=== PATIENT | male | born 1980 | race African-American/Black ===

== ENCOUNTER 2016-12-21 15:18 | Emergency (ER) | payer SELFPAY ==
[~2016-12-21] VITALS: Ht 188 cm; Wt 140.6 kg
[2016-12-21 15:33] VITALS: BP 150/100
[2016-12-21] MEDS ORDERED: CORTISPORIN EAR10 ML RIGHT EAR (16:02)
--- NOTE | 2016-12-21 16:03 | Emergency Room Report ---
History of Present Illness General Chief Complaint: Earache Source: Patient Present Illness HPI 36 y/o male c/o pain in right ear x 4 days. States 4 days ago he was taking shower and feels he got water in his ear. Patient tried to remove water with q- tip w/o improvement of sxs. States he has drainage from right ear and feels itchy and painful. No other modifying factors. Denies any current n/v/f/c/d, abd pain, back pain, neck pain, photophobia, phonophobia, CP, SOB or headache. Allergies: Coded Allergies: CEPHALEXIN (Verified Allergy, Unknown, 12/21/16) Patient History Past Medical History: see triage record Past Surgical History: none Pertinent Family History: none Reviewed Nursing Documentation: PMH: Agreed, PSxH: Agreed Nursing Documentation-PMH Past Medical History: No Stated History Review of Systems All Other Systems: negative except mentioned in HPI Physical Exam Vital Signs Date Time Temp Pulse Resp B/P Pulse Ox O2 Delivery O2 Flow Rate FiO2 12/21/16 15:22 97.3 72 16 150/100 97 Room Air Sp02 EP Interpretation: reviewed, normal General Appearance: no apparent distress, alert, GCS 15, non-toxic Head: normocephalic, atraumatic Eyes: bilateral eye PERRL, bilateral eye normal inspection ENT: hearing grossly normal, normal pharynx, no angioedema, normal voice, other - Right EAC swollen and mascerated with tender tragus Neck: full range of motion, supple/symm/no masses Respiratory: chest non-tender, lungs clear, normal breath sounds, speaking full sentences Cardiovascular #1: regular rate, rhythm, no edema Neurologic: alert, oriented x3, responsive, motor strength/tone normal, sensory intact, speech normal Psychiatric: judgement/insight normal, memory normal, mood/affect normal, no suicidal/homicidal ideation Skin: normal color, no rash, warm/dry, well hydrated Medical Decision Making PA Attestation Dr. Cassidy is my supervising physician with whom patient management has been discussed with. Diagnostic Impression: Primary Impression: Otitis externa of right ear Qualified Codes: H60.331 - Swimmer's ear, right ear ER Course Pt. presents to the ED c/o ear pain Ddx considered but are not limited to AOM, AOE, Doyle esquivel, Sinusitis, Eustachian tube dysfunction, TM Perf, Mastoiditis Vital signs: are WNL, pt. is afebrile H&PE are most consistent with AOE ORDERS: none required at this time, the diagnosis is clinical ED INTERVENTIONS: none required at this time. DISCHARGE: At this time pt. is stable for d/c to home. Will provide printed patient care instructions, and any necessary prescriptions. Care plan and follow up instructions have been discussed with the patient prior to discharge. Chest X-Ray Diagnostic Results Chest X-Ray Ordered: No Last Vital Signs Date Time Temp Pulse Resp B/P Pulse Ox O2 Delivery O2 Flow Rate FiO2 12/21/16 15:33 97.3 72 16 150/100 97 Room Air Status: unchanged Disposition: HOME, SELF-CARE Condition: Stable Scripts Neomycin/Polymyxin B Sulf/Hc* (CORTISPORIN EAR SOLUTION*) 10 Ml Solution 4 DROP RIGHT EAR QID for 7 Days, #10 ML 0 Refills Prov: MARELY ROSARIO 12/21/16 Patient Instructions: Otitis Externa, [id number] Additional Instructions: Take medication as directed. Stop medication if any rash develops and return to clinic immediately. Go to the ER if any SOB or adverse reactions occur from medication. Use ibuprofen or Tylenol if any fever or pain develop. Return sooner if no improvement within 3-5 days. MARELY ROSARIO Dec 21, 2016 16:03
[2016-12-21 16:20] VITALS: BP 150/100
== END 2016-12-21 16:25 | disposition home or self-care (01) ==
LOC: EMR 15:51
DX: H60.331 Swimmer's ear, right ear (principal); Z88.8 Allergy status to other drugs, medicaments and biological substances
CPT/HCPCS: 99283

== ENCOUNTER 2019-05-31 09:55 | Emergency (ER) | payer MEDICAID ==
[~2019-05-31] VITALS: Ht 188 cm; Wt 140.6 kg
[~2019-05-31 09:55] MED LIST: CORTISPORIN EAR10 ML RIGHT EAR
[2019-05-31 10:14] VITALS: BP 141/107
[2019-05-31] MEDS ORDERED: Ketorolac 60mg Inj IM ONE (10:45)
--- NOTE | 2019-05-31 12:06 | Diagnostic Imaging Report ---
Indication: Back pain Technique: 3 views of the lumbar spine Comparison: None Findings: Bony alignment is normal. Vertebral body heights are preserved. The disc spaces are preserved. The pedicles are intact. Sacral arches are preserved. Sacroiliac joint spaces are preserved Impression: Negative
[2019-05-31] MEDS ORDERED: IBUPROFEN600 MG ORAL (12:44)
[2019-05-31 12:55] VITALS: BP 138/92
--- NOTE | 2019-05-31 13:39 | Emergency Room Report ---
History of Present Illness General Chief Complaint: Lower Back Pain or Injury Source: Patient Present Illness HPI 38-year-old male presents with lower back pain after lifting at the gym, yesterday, patient reported doing lifts when he noticed pain in his lower back. Patient's pain is mostly on his right side in his lumbar region. Patient reports pain travels down the leg and when he moves. Patient denies any numbness, tingling, bowel changes, incontinence, urinary changes. Patient did not try any medications for pain. Allergies: Coded Allergies: CEPHALEXIN (Verified Allergy, Unknown, 12/21/16) Nursing Documentation-[facility] Past Medical History: No Stated History Review of Systems Constitutional: Denies: chills, fever Respiratory: Denies: cough, shortness of breath Cardiovascular: Denies: chest pain, palpitations Gastrointestinal: Denies: abdominal pain Musculoskeletal: Reports: back pain; Denies: joint pain Skin: Denies: rash, change in color Neurological: Denies: headache, seizure Physical Exam Vital Signs Date Time Temp Pulse Resp B/P (MAP) Pulse Ox O2 Delivery O2 Flow Rate FiO2 05/31/19 10:14 98.2 77 18 141/107 (118) 98 Room Air Sp02 EP Interpretation: reviewed, normal General Appearance: no apparent distress, alert, GCS 15, non-toxic Head: normocephalic, atraumatic Neck: full range of motion, supple/symm/no masses Respiratory: chest non-tender, lungs clear, normal breath sounds, speaking full sentences Cardiovascular #1: regular rate, rhythm, no edema Cardiovascular #2: 2+ radial (R), 2+ radial (L) Gastrointestinal: normal bowel sounds, non tender, soft, non-distended, no guarding, no rebound Musculoskeletal: gait/station normal, normal range of motion, calf tenderness, tender - Tenderness over right paraspinal to right lumbosacral joint and over buttocks Neurologic: alert, oriented x3, responsive, motor strength/tone normal, sensory intact, speech normal Skin: no rash, normal color Medical Decision Making Diagnostic Impression: Primary Impression: Back pain ER Course 38-year-old male with lumbar back pain after lifting at the gym. No signs of incontinence, bowel changes, numbness or tingling distally. Differential includes musculoskeletal pain, spinal stenosis, cauda equina syndrome, epidural abscess Less likely cauda equina or epidural abscess given the fact that he has no incontinence, midline tenderness, or lower extremity weakness Patient given anti-inflammatories and perform x-ray. Patient symptoms improved with medication X-ray within normal limits. Patient recommended to follow-up outpatient with physical therapist and primary care doctor for further evaluation. Other X-Ray Diagnostic Results Other X-Ray Diagnostic Results : X-Ray ordered: Lumbar spine Indication: Pain EP Interpretation: Yes Interpretation: no soft tissue swelling, no fractures Impression: No acute disease Last Vital Signs Date Time Temp Pulse Resp B/P (MAP) Pulse Ox O2 Delivery O2 Flow Rate FiO2 05/31/19 12:55 97.9 85 15 138/92 100 Room Air Disposition: HOME, SELF-CARE Condition: Stable Scripts Ibuprofen* (MOTRIN*) 600 Mg Tablet 600 MG ORAL Q6H PRN for For Pain, #30 TAB 0 Refills Prov: Kristian Sierra M.D. 05/31/19 Patient Instructions: Back Pain, Adult Additional Instructions: Follow-up with primary care doctor, physical therapy, and orthopedic who specializes in spine for reassessment of back pain and continue treatment. If any new symptoms such as numbness, tingling, or change in bowel habits return to emergency room immediately Kristian Sierra M.D. May 31, 2019 13:39
== END 2019-05-31 12:55 | disposition home or self-care (01) ==
LOC: EMR 10:30
DX: M54.5 Low back pain (principal); Z88.8 Allergy status to other drugs, medicaments and biological substances
CPT/HCPCS: 72020; 96372; Z7502; 99283

== ENCOUNTER 2019-07-18 09:07 | Emergency (ER) | payer MEDICAID ==
[~2019-07-18] VITALS: Ht 188 cm; Wt 131.5 kg
[~2019-07-18 09:07] MED LIST changes: +IBUPROFEN600 MG ORAL
[2019-07-18 09:16] VITALS: BP 143/100
--- NOTE | 2019-07-18 09:17 | NUR ---
ED Nurse Note:pt. came with possible STD or UTI with tingling on urination
[2019-07-18 09:53] LABS: APPEARANCE,URINE CLEAR; BILIRUBIN, URINE NEGATIVE (NEGATIVE); COLOR,URINE PALE YELLOW; GLUCOSE, URINE (UA) NEGATIVE (NEGATIVE); KETONES,URINE NEGATIVE (NEGATIVE); LEUKOCYTE ESTERASE ,URINE 2+ (NEGATIVE); NITRITE,URINE NEGATIVE (NEGATIVE); PH,URINE 6 (4.5-8.0); PROTEIN,URINE NEGATIVE (NEGATIVE); UROBILINOGEN,URINE NORMAL MG/DL (0.0-1.0)
--- NOTE | 2019-07-18 10:53 | Emergency Room Report ---
History of Present Illness General Chief Complaint: Male Urogenital Problems Source: Patient Present Illness HPI 38-year-old male presents to emergency room because his penis is feeling funny. Patient is concerned for urinary tract infection versus x-ray transfer infection. He reports when he pees he feels abnormal sensation at the tip of his penis. He denies any rashes, lesions, trauma. He does report new sexual partners over the course of the last several months. He has not been tested for gonorrhea chlamydia at this time. Patient denies any fevers, abdominal pain , nausea, vomiting, diarrhea, constipation, abdominal surgeries. Allergies: Coded Allergies: CEPHALEXIN (Verified Allergy, Unknown, 12/21/16) Nursing Documentation-[facility] Past Medical History: No Stated History Review of Systems Constitutional: Denies: fever Eye: Denies: acuity changes Respiratory: Denies: cough, shortness of breath Cardiovascular: Denies: chest pain Gastrointestinal: Denies: nausea, vomiting Genitourinary: Reports: dysuria Skin: Denies: rash Neurological: Denies: headache Physical Exam Vital Signs Date Time Temp Pulse Resp B/P (MAP) Pulse Ox O2 Delivery O2 Flow Rate FiO2 07/18/19 09:09 98.4 69 15 143/100 (114) 95 Room Air Sp02 EP Interpretation: reviewed, normal General Appearance: normal inspection, well appearing, no apparent distress, alert ENT: EOM grossly intact, normal voice, moist mucus membranes Respiratory: no respiratory distress, speaking full sentences Cardiovascular #1: normal peripheral pulses Genitourinary: normal inspection, no CVA tenderness, penis normal, scrotum normal Musculoskeletal: moves extm spontaneously Neurologic: no focal defects Skin: warm/dry Medical Decision Making Diagnostic Impression: Primary Impression: Urethritis ER Course 38-year-old male presenting with dysuria, questionable new sexual partners, no lesions on exam Given WBC count and urine analysis will treat for gonorrhea and chlamydia. Also recommended patient to follow-up with primary care doctor or at health clinic. Patient is stable for outpatient follow-up and discharge, no signs of testicular torsion, acute abdomen, or sepsis at this time Laboratory Tests Test 07/18/19 09:20 Urine Color Pale yellow Urine Appearance Clear Urine pH 6 (4.5-8.0) Urine Specific Williams 1.010 (1.005-1.035) Urine Protein Negative (NEGATIVE) Urine Glucose (UA) Negative (NEGATIVE) Urine Ketones Negative (NEGATIVE) Urine Blood Negative (NEGATIVE) Urine Nitrite Negative (NEGATIVE) Urine Bilirubin Negative (NEGATIVE) Urine Urobilinogen Normal MG/DL (0.0-1.0) Urine Leukocyte Esterase 2+ (NEGATIVE) H Urine RBC 0 /HPF (0 - 0) Urine WBC 5-10 /HPF (0 - 0) H Urine Squamous Epithelial Cells Occasional /LPF Urine Bacteria Occasional /HPF (NONE) Last Vital Signs Date Time Temp Pulse Resp B/P (MAP) Pulse Ox O2 Delivery O2 Flow Rate FiO2 07/18/19 09:16 98.4 15 143/100 95 Room Air 07/18/19 09:09 69 Disposition: HOME, SELF-CARE Condition: Stable Scripts Doxycycline Monohydrate* (DOXYCYCLINE MONOHYDRATE*) 100 Mg Capsule 100 MG ORAL Q12H for 7 Days, #14 CAP 0 Refills Prov: Kristian Sierra M.D. 07/18/19 Referrals: [facility] [place] Patient Instructions: Urethritis, Adult Additional Instructions: Please follow-up with primary care doctor or clinic as noted above. Kristian Sierra M.D. Jul 18, 2019 10:53
[2019-07-18] MEDS ORDERED: DOXYCYCLINE MO100 MG ORAL (10:54)
[2019-07-18] MEDS ORDERED: Azithromycin 250mg tab ORAL ONE (11:00)
[2019-07-18] MEDS ORDERED: Lidocaine 1% MPF 10mg/ml 5ml INJ ONE (11:00)
[2019-07-18] MEDS ORDERED: Lidocaine 1% MPF 10mg/ml 5ml ONE (11:12)
[2019-07-18 11:30] VITALS: BP 143/100
--- NOTE | 2019-07-18 11:30 | NUR ---
ER DISCHARGE NOTE: Patient is cleared to be discharged per ERMD, pt is aox4, on room air, with stable vital signs. pt was given dc and prescription instructions, pt was able to verbalize understanding, pt is able to ambulate with steady gait. pt took all belongings.
== END 2019-07-18 11:30 | disposition home or self-care (01) ==
LOC: EMR 10:00
DX: N34.2 Other urethritis (principal); Z88.8 Allergy status to other drugs, medicaments and biological substances
CPT/HCPCS: 81001; 96372; 96374; J0696; Q0144; Z7502; 99284